=== PATIENT | male | born 1960 | race African-American/Black ===

== ENCOUNTER 2017-07-01 22:24 | Emergency (ER) | payer OTHER ==
[~2017-07-01] VITALS: Ht 175.3 cm; Wt 113.4 kg
[~2017-07-01 22:24] MED LIST: ALBU1.25 NEB; ATOR10TA PO; Aspirin PO; CARV12.5 PO; FLUT12AE5 IH; FURO-144 PO; GUAI10SY3 PO; LISI20TA61 PO; Menthol/Cetylpyrd Cl PO; Nitroglycerin SL
--- NOTE | 2017-07-01 22:30 | NUR ---
57 yo male bb ra from home. 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 pt assisted to er bed, skin warm and rdy, rr even and unlabored. patient denies SOB/ N/V/ radiation of pain. pt gowned,placed on pvc monitor. awaiting orders from provider, will continue to monitor
--- NOTE | 2017-07-01 23:02 | NUR ---
blood sample obtained and sent to lab
[2017-07-01 23:10] LABS: BASOPHILS # (AUTO) 0.1 /CMM (0.0-0.2); BASOPHILS % (AUTO) 0.9 % (0.0-2.0); EOSINOPHILS # (AUTO) 0.3 /CMM (0.0-0.7); EOSINOPHILS % (AUTO) 4.3 % (0.0-6.0); HEMATOCRIT 38 % (39-51); HEMOGLOBIN 12.6 g/dL (13.5-17.5); LYMPHOCYTES # (AUTO) 1.9 /CMM (0.8-4.8); LYMPHOCYTES % (AUTO) 28.5 % (20.0-44.0); MEAN CORPUSCULAR HEMOGLOBIN 24 PG (26.0-33.0); MEAN CORPUSCULAR HGB CONC 33 g/dl (31.0-36.0); MEAN CORPUSCULAR VOLUME 74 fL (80-96); MONOCYTES # (AUTO) 0.4 /CMM (0.1-1.30); MONOCYTES % (AUTO) 6.5 % (2.0-12.0); NEUTROPHILS # (AUTO) 4.1 /CMM (1.8-8.9); NEUTROPHILS % (AUTO) 59.8 % (43.0-81.0); PLATELET COUNT (AUTO) 198 /CMM (150-450); RDW COEFFICIENT OF VARIATION 21.2 (11.5-15.0); RED BLOOD CELL COUNT(AUTO) 5.16 MIL/uL (4.5-6.0); WHITE BLOOD COUNT (AUTO) 6.8 K/uL (4.3-11.0)
[2017-07-01 23:24] LABS: CALCIUM, SERUM 8.9 mg/dL (8.5-10.1); CREATININE 1.2 mg/dL (0.6-1.3)
[2017-07-01 23:25] LABS: INR 1.02 (0.87-1.13); PROTHROMBIN TIME 10.6 SECS (9.5-12.7)
[2017-07-01 23:29] LABS: TROPONIN I 0.197 ng/mL (0.00-0.056)
[2017-07-01 23:33] LABS: ALBUMIN 3.8 g/dL (3.4-5.0); BILIRUBIN,DIRECT 0.1 mg/dL (0.0-0.2); BILIRUBIN,TOTAL 0.4 mg/dL (0.2-1.0)
[2017-07-01] MEDS ORDERED: ENOXAPARIN SODIUM 40 MG/0.4 ML DISP.SYRIN SQ ONE (23:55)
[2017-07-01] MEDS ORDERED: FUROSEMIDE 40 MG/4 ML VIAL ONE (23:55)
[2017-07-01] MEDS ORDERED: ENOXAPARIN SODIUM 80 MG/0.8 ML DISP.SYRIN SQ ONE (23:55)
[2017-07-01] MEDS ORDERED: NITROGLYCERIN PACKET 1 GM PACKET ONE (23:55)
[2017-07-01] MEDS ORDERED: ASPIRIN 81 MG TAB.CHEW ONE (23:56)
[2017-07-02] MEDS ORDERED: ASPIRIN 81 MG TAB.CHEW PO ONE
[2017-07-02] MEDS ORDERED: NITROGLYCERIN PACKET 1 GM PACKET TOP ONE
[2017-07-02] MEDS ORDERED: FUROSEMIDE 40 MG/4 ML VIAL IV ONE
--- NOTE | 2017-07-02 00:17 | NUR ---
medicated pt as ordered
--- NOTE | 2017-07-02 02:46 | NUR ---
patient resting in er bed, nad noted. pt is on cardiac rehabilitation specialist
--- NOTE | 2017-07-02 03:35 | NUR ---
Rufus stock in EDM - 07/02/17 at 0345 by [address] [facility] ROOM 512 ACCEPTING MD IDANIA VELASQUEZ, NUMBER FOR REPORT IS [phone] ETA FOR AMBULANCE IS [phone]
--- NOTE | 2017-07-02 03:46 | NUR ---
ABRAN FROM [facility] CALLED, PT ACCEPTED TO [facility] ROOM 512 ACCEPTING MD IS RON, NUMBER FOR REPORT IS [phone] ETA FOR AMBULANCE IS 0700
--- NOTE | 2017-07-02 03:46 | NUR ---
Rufus stock in EDM - 07/02/17 at [address] [facility] to give report. RAJESH Saldana took report, advised nurse that ETA to our facility was 7 am. will continue to monitor patient
--- NOTE | 2017-07-02 03:57 | NUR ---
Called [facility] to give report. RAJESH Saldana took report, advised nurse that ETA to our facility was 7 am. will continue to monitor patient
[2017-07-02 06:17] VITALS: BP 127/86
--- NOTE | 2017-07-02 06:18 | NUR ---
patient is asleep in er bed, nad noted. pt is breathing effortlessly, skin warm and dry. 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
--- NOTE | 2017-07-02 07:14 | NUR ---
report given to Charly MENA for vishal
--- NOTE | 2017-07-02 07:15 | NUR ---
RECEIVED REPORT. PATIENT RESTING IN BED COMFORTABLY, NO COMPLICATIONS NOTED. AWAITING TRANSFER.
--- NOTE | 2017-07-02 08:10 | NUR ---
REPORT GIVEN TO EMS. PATIENT TRANSFERRED TO [facility] VIA ACLS PROTOCOL.
== END 2017-07-02 08:08 | disposition short-term general hospital (02) ==
LOC: ER 22:31
DX: I21.4 Non-ST elevation (NSTEMI) myocardial infarction (principal); I11.0 Hypertensive heart disease with heart failure; I50.9 Heart failure, unspecified; D64.9 Anemia, unspecified; E78.5 Hyperlipidemia, unspecified; I42.9 Cardiomyopathy, unspecified; J45.909 Unspecified asthma, uncomplicated; Z79.82 Long term (current) use of aspirin; Z86.73 Personal history of transient ischemic attack (TIA), and cerebral infarction without residual deficits; Z95.0 Presence of cardiac pacemaker
CPT/HCPCS: 36415; 71010; 80048; 80076; 80305; 83880; 84484; 85025; 85730; 87081; 93005; 96372; 96374; 99291; A4606; G0480; J1650 ×3; J1940; Z7610

== ENCOUNTER 2017-11-26 07:00 | Emergency (ER) | payer OTHER ==
[~2017-11-26] VITALS: Ht 177.8 cm; Wt 117.9 kg
--- NOTE | 2017-11-26 07:00 | NUR ---
PT [address], PT C/O SOB X 20 MINUTES CADDIE. NAD NOTED. PT AAO X4, AMB WITH STEADY GAIT. RR EVEN AND UNLABORED AT THIS TIME. PT PLACED ON MONITOR. DR PENA AT BEDSIDE FOR EVAL.
[2017-11-26] MEDS ORDERED: ASPIRIN 81 MG TAB.CHEW ONE (07:14)
[2017-11-26] MEDS ORDERED: FUROSEMIDE 40 MG/4 ML VIAL ONE (07:14)
[2017-11-26] MEDS ORDERED: FUROSEMIDE 40 MG/4 ML VIAL IV ONE (07:30)
[2017-11-26] MEDS ORDERED: ASPIRIN 81 MG TAB.CHEW PO ONE (07:30)
[2017-11-26 07:34] LABS: BASOPHILS % (AUTO) 0.4 % (0.0-2.0); EOSINOPHILS # (AUTO) 0.3 /CMM (0.0-0.7); EOSINOPHILS % (AUTO) 5.1 % (0.0-6.0); HEMATOCRIT 38 % (39-51); HEMOGLOBIN 12.4 g/dL (13.5-17.5); LYMPHOCYTES # (AUTO) 1.9 /CMM (0.8-4.8); LYMPHOCYTES % (AUTO) 28.9 % (20.0-44.0); MEAN CORPUSCULAR HEMOGLOBIN 25 PG (26.0-33.0); MEAN CORPUSCULAR HGB CONC 33 g/dl (31.0-36.0); MEAN CORPUSCULAR VOLUME 75 fL (80-96); MONOCYTES # (AUTO) 0.7 /CMM (0.1-1.30); MONOCYTES % (AUTO) 11.3 % (2.0-12.0); NEUTROPHILS # (AUTO) 3.5 /CMM (1.8-8.9); NEUTROPHILS % (AUTO) 54.3 % (43.0-81.0); PLATELET COUNT (AUTO) 199 /CMM (150-450); RDW COEFFICIENT OF VARIATION 16.7 (11.5-15.0); RED BLOOD CELL COUNT(AUTO) 5.06 MIL/uL (4.5-6.0); WHITE BLOOD COUNT (AUTO) 6.4 K/uL (4.3-11.0)
[2017-11-26 07:45] LABS: CALCIUM, SERUM 8.6 mg/dL (8.5-10.1); CREATININE 1.1 mg/dL (0.6-1.3); POTASSIUM 3.4 mmol/L (3.5-5.1)
[2017-11-26 07:50] LABS: INR 1.03 (0.87-1.13)
[2017-11-26 07:52] LABS: TROPONIN I 0.02 ng/mL (0.00-0.056)
[2017-11-26 07:58] LABS: ALBUMIN 3.6 g/dL (3.4-5.0); BILIRUBIN,DIRECT 0.1 mg/dL (0.0-0.2); BILIRUBIN,TOTAL 0.5 mg/dL (0.2-1.0); TOTAL PROTEIN, SERUM 7.9 g/dL (6.4-8.2)
--- NOTE | 2017-11-26 08:16 | NUR ---
PAGED NURSING SUP FOR TELE BED
--- NOTE | 2017-11-26 08:54 | NUR ---
ONDINA CALLED HE IS ON HIS WAY TO ER
[2017-11-26 09:22] VITALS: BP 147/67
== END 2017-11-26 09:23 | disposition home or self-care (01) ==
LOC: ER 07:02
DX: I11.0 Hypertensive heart disease with heart failure (principal); I50.9 Heart failure, unspecified; J45.909 Unspecified asthma, uncomplicated; R06.02 Shortness of breath; I25.2 Old myocardial infarction; Z79.82 Long term (current) use of aspirin; Z86.73 Personal history of transient ischemic attack (TIA), and cerebral infarction without residual deficits; Z60.2 Problems related to living alone
CPT/HCPCS: 36415; 71045; 80048; 80076; 83880; 84484; 85025; 85730; 93005; 96374; 99285; A4606; J1940; Z7610

== ENCOUNTER 2018-02-23 16:47 | Emergency (ER) | payer OTHER ==
[~2018-02-23] VITALS: Ht 177.8 cm; Wt 135.6 kg
--- NOTE | 2018-02-23 16:47 | NUR ---
BIBRA C/O NON RADIATING MIDSTERNAL CHEST PAIN, 1 NITRO AND 162 ASA. NAD NOTED. PT AAO X3, RR EVEN AND UNLABORED. VSS. PENDING MD CAN.
[2018-02-23] MEDS ORDERED: FUROSEMIDE 40 MG/4 ML VIAL IV ONE ×2 (17:00→22:30)
[2018-02-23] MEDS ORDERED: FUROSEMIDE 40 MG/4 ML VIAL ONE ×2 (17:11→22:44)
[2018-02-23 17:21] LABS: BASOPHILS % (AUTO) 0.5 % (0.0-2.0); HEMATOCRIT 38 % (39-51); HEMOGLOBIN 12.1 g/dL (13.5-17.5); LYMPHOCYTES # (AUTO) 2.4 /CMM (0.8-4.8); LYMPHOCYTES % (AUTO) 31.4 % (20.0-44.0); MEAN CORPUSCULAR HGB CONC 32 g/dl (31.0-36.0); MEAN CORPUSCULAR VOLUME 76 fL (80-96); MONOCYTES # (AUTO) 0.6 /CMM (0.1-1.30); MONOCYTES % (AUTO) 8.3 % (2.0-12.0); NEUTROPHILS # (AUTO) 4.6 /CMM (1.8-8.9); NEUTROPHILS % (AUTO) 58.8 % (43.0-81.0); PLATELET COUNT (AUTO) 160 /CMM (150-450); RDW COEFFICIENT OF VARIATION 15.4 (11.5-15.0); RED BLOOD CELL COUNT(AUTO) 4.98 MIL/uL (4.5-6.0); WHITE BLOOD COUNT (AUTO) 7.7 K/uL (4.3-11.0)
[2018-02-23 17:33] LABS: CALCIUM, SERUM 8.7 mg/dL (8.5-10.1); CREATININE 1.4 mg/dL (0.6-1.3); POTASSIUM 3.4 mmol/L (3.5-5.1)
[2018-02-23 17:37] LABS: INR 1.09 (0.85-1.15)
[2018-02-23 17:39] LABS: TROPONIN I 0.112 ng/mL (0.00-0.056)
[2018-02-23 17:47] LABS: ALBUMIN 3.4 g/dL (3.4-5.0); BILIRUBIN,DIRECT 0.2 mg/dL (0.0-0.2); BILIRUBIN,TOTAL 0.7 mg/dL (0.2-1.0); TOTAL PROTEIN, SERUM 7.6 g/dL (6.4-8.2)
--- NOTE | 2018-02-23 17:51 | NUR ---
PT TO CT
[2018-02-23] MEDS ORDERED: FURO40TA5 PO (17:53)
[2018-02-23] MEDS ORDERED: ATOR40TA PO (17:53)
[2018-02-23] MEDS ORDERED: LEVE500T9 PO (17:53)
--- NOTE | 2018-02-23 18:26 | NUR ---
WAITING FOR BED TELE
--- NOTE | 2018-02-23 18:48 | NUR ---
GOT [facility] BED 323-2
--- NOTE | 2018-02-23 19:04 | NUR ---
RECEIVED REPORT FROM RAJESH MAYA FOR BRENDA.
--- NOTE | 2018-02-23 19:24 | NUR ---
PER [facility] WILL PAGE DR. MOE CANELA
--- NOTE | 2018-02-23 19:33 | NUR ---
DR. ARMSTRONG SPEAKING TO DR. MOE CANELA REGARDING ADMISSION
--- NOTE | 2018-02-23 20:23 | NUR ---
DR. NJ SPEAKING TO DR. ARMSTRONG REGARDING ADMISSION
--- NOTE | 2018-02-23 21:20 | NUR ---
SPOKE TO MANNY OSULLIVAN FROM [facility], PT IS CAPIATED TO [facility]. PT AGREED TO TRANSFER TO [facility]. DR. ARMSTRONG MADE AWARE. CLINICALS AND FACESHEET SENT TO [facility] [phone] MANNY OSULLIVAN CALL BACK [phone]
--- NOTE | 2018-02-23 21:59 | NUR ---
ETHAN LUTHER SPEAKING TO DR. ARMSTRONG REGARDING POC. Addendum: 02/23/18 [address] VERDUZCO
--- NOTE | 2018-02-23 22:12 | NUR ---
Patient is resting comfortably in bed with eyes closed. Easily aroused. VSS
--- NOTE | 2018-02-23 22:58 | NUR ---
PER MANNY OSULLIVAN WAITING FOR BED FROM . WILL CALL BACK WITH BED INFO.
--- NOTE | 2018-02-23 23:48 | NUR ---
PER ETHAN BRYANT [facility] [phone] WILL FOLLOW UP WITH BED INFO.
[2018-02-24 00:17] VITALS: BP 152/66
--- NOTE | 2018-02-24 00:17 | NUR ---
Patient is resting comfortably in bed with eyes closed. Easily aroused. VSS
--- NOTE | 2018-02-24 00:18 | NUR ---
SPOKE TO ETHAN CABAN ADMITTING HOSP: [facility] ROOM 63 REPORT TO [phone]. ADMITTING MD: DR. LUBA DONOVAN ETA 60MINS.
--- NOTE | 2018-02-24 00:34 | NUR ---
REPORT GIVEN TO RAJESH CHENG FOR BRENDA.
--- NOTE | 2018-02-24 01:14 | NUR ---
REPORT GIVEN TO [facility] 231 EMT FOR BRENDA. PT IV INTACT AND PATENT. NO S/S INFECTION OF INFILTRATION. PT WITH ALL PERSONAL BELONGINGS. PT AWARE OF TRANSFER. PT PLACED ON GURNEY TO BE TRANSPORTED TO [facility]. PER ZION TOOK OVER CARE.
== END 2018-02-24 02:06 | disposition short-term general hospital (02) ==
LOC: ER 16:49
DX: I21.4 Non-ST elevation (NSTEMI) myocardial infarction (principal); I11.0 Hypertensive heart disease with heart failure; I50.9 Heart failure, unspecified; I25.2 Old myocardial infarction; J45.909 Unspecified asthma, uncomplicated; Z86.73 Personal history of transient ischemic attack (TIA), and cerebral infarction without residual deficits; Z79.82 Long term (current) use of aspirin; Z60.2 Problems related to living alone
CPT/HCPCS: 36415; 71045; 80048; 80076; 83880; 84484; 85025; 85730; 93005; 96374; 96376; 99285; A4606; J1940 ×2; Z7610

== ENCOUNTER 2018-02-28 17:11 | Inpatient (IN) | payer OTHER ==
[~2018-02-28] VITALS: Ht 177.8 cm; Wt 132.4 kg
[~2018-02-28 17:11] MED LIST changes: -ALBU1.25 NEB; -ATOR10TA PO; +ATOR40TA PO; -Aspirin PO; -CARV12.5 PO; -FLUT12AE5 IH; -FURO-144 PO; +FURO40TA5 PO; -GUAI10SY3 PO; +LEVE500T9 PO; -LISI20TA61 PO; -Menthol/Cetylpyrd Cl PO; -Nitroglycerin SL
[2018-02-28] MEDS ORDERED: IV NS 0.9% 1,000 ML BAG IV ONE (17:30)
[2018-02-28 17:45] LABS: BASOPHILS # (AUTO) 0.2 /CMM (0.0-0.2); BASOPHILS % (AUTO) 2.5 % (0.0-2.0); EOSINOPHILS % (AUTO) 1.7 % (0.0-6.0); HEMATOCRIT 39 % (39-51); HEMOGLOBIN 12.7 g/dL (13.5-17.5); LYMPHOCYTES # (AUTO) 1.6 /CMM (0.8-4.8); LYMPHOCYTES % (AUTO) 21.6 % (20.0-44.0); MEAN CORPUSCULAR HGB CONC 33 g/dl (31.0-36.0); MEAN CORPUSCULAR VOLUME 75 fL (80-96); MONOCYTES # (AUTO) 0.7 /CMM (0.1-1.30); MONOCYTES % (AUTO) 9.5 % (2.0-12.0); NEUTROPHILS # (AUTO) 4.7 /CMM (1.8-8.9); NEUTROPHILS % (AUTO) 64.7 % (43.0-81.0); PLATELET COUNT (AUTO) 180 /CMM (150-450); RDW COEFFICIENT OF VARIATION 15.1 (11.5-15.0); RED BLOOD CELL COUNT(AUTO) 5.15 MIL/uL (4.5-6.0); WHITE BLOOD COUNT (AUTO) 7.3 K/uL (4.3-11.0)
[2018-02-28 17:59] LABS: INR 1.15 (0.85-1.15)
--- NOTE | 2018-02-28 18:00 | NUR ---
[id number] FROM THE STREET, OUTSIDE A SUPERResiModelET C/O GENERALIZED WEAKNESS. SEEN BY FOR EVAL. SAFETY AND COMFORT MEASURES PROVIDED. WILL MONITOR.
[2018-02-28 18:07] LABS: ALBUMIN 3.5 g/dL (3.4-5.0); BILIRUBIN,DIRECT 0.2 mg/dL (0.0-0.2); CALCIUM, SERUM 9.3 mg/dL (8.5-10.1); CREATININE 1.7 mg/dL (0.6-1.3); POTASSIUM 3.8 mmol/L (3.5-5.1); TROPONIN I 0.062 ng/mL (0.00-0.056)
--- NOTE | 2018-02-28 18:20 | NUR ---
IV ACCESS STARTED. BLOOD DRAWN FOR LABS. MEDICATED ORDERED.
[2018-02-28] MEDS ORDERED: ASPIRIN 325 MG TABLET PO ONE (19:00)
[2018-02-28] MEDS ORDERED: NITROGLYCERIN PACKET 1 GM PACKET TD ONE (19:00)
[2018-02-28] MEDS ORDERED: NITROGLYCERIN PACKET 1 GM PACKET ONE (19:13)
[2018-02-28] MEDS ORDERED: ASPIRIN 325 MG TABLET ONE (19:13)
--- NOTE | 2018-02-28 19:39 | NUR ---
CALLED NURSING REAL ESTATE PROFESSIONAL AND REQUESTED A TELE BED FOR THIS PT.
--- NOTE | 2018-02-28 19:58 | NUR ---
PT ASSIGNED TO BED 322-2
--- NOTE | 2018-02-28 20:05 | NUR ---
REPORT GIVEN TO RAJESH MARTINEZ FOR BRENDA
--- NOTE | 2018-02-28 20:58 | NUR ---
pt sitting up at edge of bed using urinal w/ resp even & unlabored, nad noted. Awaiting transfer to [facility] 322-1.
--- NOTE | 2018-02-28 21:11 | NUR ---
[place] juice provided. pt sitting up in bed drinking w/ no aspiration of flds noted.
--- NOTE | 2018-02-28 21:14 | NUR ---
PT TRANSFERRED VIA GURNEY FOLLOWING ALS PROTOCOL TO TELE 322-1.
--- NOTE | 2018-02-28 21:20 | NUR ---
RN NOTES PATIENT BROUGHT INTO THE UNIT VIA GURNEY ACCOMPANIED BY 2 ER STAFF AND WAS ABLE TO AMBULATE SAFELY FROM GURNEY TO BED. PT IS ALERT AND ORIENTED X 3, ABLE TO MAKE NEEDS KNOWN, NO SOB NOTED, BREATHING EVEN AND UNLABORED AND DENIES PAIN/NAUSEA/VOMITING AT THIS TIME. ORIENTED PATIENT TO UNIT, ROOM, ROOM MATE, CALL LIGHT, USE OF CALL LIGHT AND ADMISSION PROCESS AND PT VERBALIZED UNDERSTANDING. BODY ASSESSMENT DONE. PATIENT WILL BE UNDER TELEMETRY MONITORING, SR @ 60s-80s WITH PVCs and BBB. ALL PATIENT'S NEEDS ATTENDED TO, PATIENT IS AWARE OF SAFETY NEEDS, PLACED BED IN LOW POSITION AND LOCKED IN PLACE. CALL LIGHT WITHIN EASY REACH. WILL CONTINUE TO MONITOR. AWAITING ADMISSION ORDERS.
[2018-02-28 22:00] VITALS: BP 121/65
--- NOTE | 2018-02-28 22:00 | NUR ---
RN NOTES PAGED MD FOR ADMISSION ORDERS, AWAITING CALL BACK.
--- NOTE | 2018-02-28 22:24 | NUR ---
RN NOTES RECEIVED CALL BACK FROM , RECEIVED NEW ORDER THAT PT WILL BE NPO POST MIDNGHT, AND IT'S OK TO GIVE PT ORANGE JUICE WITH ICE. ALL ORDERS NOTED AND CARRIED OUT, AWAITING FOR ADMISSION ORDERS.
--- NOTE | 2018-02-28 23:29 | NUR ---
RN NOTES RECEIVED CLARIFICATION OF DIET ORDER. ALL ORDERS NOTED AND CARRIED OUT.
[2018-02-28] MEDS ORDERED: MAGNESIUM HYDROXIDE 30 ML UDC PO PRN (23:30)
[2018-02-28] MEDS ORDERED: ONDANSETRON HCL/PF 4 MG/2 ML VIAL IVP PRN (23:30)
[2018-02-28] MEDS ORDERED: NITROGLYCERIN 0.4 MG/TAB BOTTLE SL PRN (23:30)
[2018-02-28] MEDS ORDERED: LORAZEPAM 1 MG TABLET PO PRN (23:30)
[2018-02-28] MEDS ORDERED: HYDROCODONE/APAP 5/325MG 1 EACH TABLET PO PRN (23:30)
[2018-02-28] MEDS ORDERED: Z GUARD REMEDY 2 OZ OINT TP PRN (23:30)
[2018-02-28] MEDS: ENOXAPARIN SODIUM 40 MG/0.4 ML DISP.SYRIN SQ SCH (23:30)
[2018-02-28] MEDS ORDERED: MAG HYDROX/AL HYDROX/SIMETH 30 ML UDC PO PRN (23:30)
[2018-02-28] MEDS ORDERED: ACETAMINOPHEN 325 MG TABLET PO PRN (23:30)
--- NOTE | 2018-02-28 23:51 | NUR ---
RN NOTES PATIENT REFUSED LOVENOX SHOT. EXPLAINED BENEFITS AND RISKS TO PATIENT X 3 BUT PT CONTINUES TO REFUSE MEDICATION AND SAYS THAT HE JUST WANTS TO SLEEP AND HAS BECOME AGITATED. RESPECTED PT'S REQUEST. WILL CONTINUE TO MONITOR.
[2018-03-01] VITALS: BP 118/71
[2018-03-01] MEDS: ZOLPIDEM TARTRATE 5 MG TABLET PO PRN ×2 (00:19→21:42)
--- NOTE | 2018-03-01 00:19 | NUR ---
RN NOTES PATIENT REQUESTING FOR A SLEEPING PILL, ADMINISTERED AMBIEN ORDERED. WILL CONTINUE TO MONITOR PT.
--- NOTE | 2018-03-01 01:00 | NUR ---
RN NOTES PATIENT COMPLAINING OF CRAMPING OF RIGHT LEG, ELEVATED LEG AND ENCOURAGED NOT TO STAY IN ONE POSITION FOR A LONG TIME. WILL CONTINUE TO MONITOR PT.
--- NOTE | 2018-03-01 01:25 | NUR ---
RN NOTES PATIENT VERBALIZED THAT CRAMPING OF THE RIGHT LEG HAS BEEN RELIEVED BUT NOW HAS CRAMPING ON LEFT LEG. ELEVATED AND MASSAGED LEG. BOTH LEGS NOTED WITH NO REDNESS OR SWELLING. WILL CONTINUE TO MONITOR PT.
--- NOTE | 2018-03-01 02:00 | NUR ---
RN NOTES PATIENT ASLEEP, NO SOB NOTED. WILL CONTINUE TO MONITOR.
--- NOTE | 2018-03-01 02:53 | NUR ---
RN NOTES RECEIVED BNP LEVEL, REPORTED TO DR. CANELA WITH NO NEW ORDER. PATIENT WILL BE SEEN BY THE ENVIRONMENTAL HEALTH SAFETY MANAGER IN THE AM. WILL CONTINUE TO MONITOR PT.
[2018-03-01 04:00] VITALS: BP 114/67
--- NOTE | 2018-03-01 06:48 | NUR ---
RN CLOSING NOTES PATIENT IN BED, ASLEEP BUT EASILY AROUSABLE, PT IS ALERT AND ORIENTED X 3, ABLE TO MAKE NEEDS KNOWN, DENIES PAIN, NO SOB NOTED, BREATHING EVEN AND UNLABORED, ALL PATIENT'S NEEDS ATTENDED TO THROUGHOUT THE SHIFT. PT ON TELE MONITORING: SR WITH PVCs @60s-80s. PT RECEIVING O2 @ 2LPM AND DVT PUMPS IN PLACE. PLACED BED IN LOW POSITION AND LOCKED IN PLACE. CALL LIGHT PLACED WITHIN EASY REACH. WILL ENDORSE TO AM SHIFT NURSE FOR CONTINUITY OF CARE.
[2018-03-01 07:24] LABS: BASOPHILS % (AUTO) 0.3 % (0.0-2.0); EOSINOPHILS % (AUTO) 3.5 % (0.0-6.0); HEMATOCRIT 36 % (39-51); HEMOGLOBIN 11.9 g/dL (13.5-17.5); LYMPHOCYTES # (AUTO) 1.4 /CMM (0.8-4.8); LYMPHOCYTES % (AUTO) 25.2 % (20.0-44.0); MEAN CORPUSCULAR HGB CONC 33 g/dl (31.0-36.0); MEAN CORPUSCULAR VOLUME 77 fL (80-96); MONOCYTES # (AUTO) 0.7 /CMM (0.1-1.30); MONOCYTES % (AUTO) 12.2 % (2.0-12.0); NEUTROPHILS # (AUTO) 3.3 /CMM (1.8-8.9); NEUTROPHILS % (AUTO) 58.8 % (43.0-81.0); PLATELET COUNT (AUTO) 158 /CMM (150-450); RDW COEFFICIENT OF VARIATION 16.4 (11.5-15.0); RED BLOOD CELL COUNT(AUTO) 4.71 MIL/uL (4.5-6.0); WHITE BLOOD COUNT (AUTO) 5.6 K/uL (4.3-11.0)
--- NOTE | 2018-03-01 07:30 | NUR ---
BRANDING MACHINE TENDER OPENING NOTES PATIENT IN BED AWAKE, VERBALLY RESPONSIVE, ABLE TO MAKE NEEDS KNOWN. BREATHING EVEN AND UNLABORED. NO SOB NOTED. NO COMPLAINTS OF PAIN OR DISCOMFORT. NO APPARENT DISTRESS. IV ON LAC #20 INTACT AND PATENT. DVT PUMPS REMOVED. PER PATIENT, DOES NOT WANT AT THIS MOMENT. BED IN LOW LOCKED POSITION. CALL LIGHT WITHIN EASY REACH.
[2018-03-01 08:00] VITALS: BP 128/91
[2018-03-01] MEDS: LEVETIRACETAM (250 MG) 250 MG TABLET PO SCH ×2 (09:03→16:31)
[2018-03-01] MEDS: ASPIRIN 325 MG TABLET PO SCH (09:03)
[2018-03-01] MEDS: CARVEDILOL 6.25 MG TABLET PO SCH ×2 (09:03→21:42)
[2018-03-01] MEDS: ENOXAPARIN SODIUM 40 MG/0.4 ML DISP.SYRIN SQ SCH (09:04)
[2018-03-01] MEDS: PANTOPRAZOLE 40 MG TABLET.DR PO SCH (09:05)
--- NOTE | 2018-03-01 09:41 | NUR ---
WOUND CARE CONSULT: PT NOT SEEN YET DUE TO PT HAVING PROCEDURE AT THIS TIME. WILL SEE PT PT CONDITION PERMITS.
--- NOTE | 2018-03-01 10:10 | NUR ---
INITIAL ECHO SHOWED EF 20%~ W/ SEVERE PULM HYPERTENSION 58mmHg. INFORMED CHARGE NURSE (GRABIEL) AND DR. SUERO.
--- NOTE | 2018-03-01 10:17 | NUR ---
Social service consult requested by pt. himself. Pt. is a 57 year old male who was admitted to [facility] for chest pain. CLAY met with pt. bedside. Pt. is alert and oriented x 4. Pt. was pleasant during the assessment. Pt. states he has been homeless for over a year. Pt. is from his and has two children ages 6 and 10 years. Pt's resides in [place]. Pt. is requesting a board and care facility. Pt. states he can afford $600 per month. CLAY informed pt. she will assist him in finding a board and care. CLAY informed human services case manager Karo Espinoza who will contact Adam from [facility] services at to come assess patient for placement. Pt. denies using drugs and alcohol. Pt. denies smoking cigarettes and marijuana. No other social service needs are requested at this time. SW to arrange for placement.
[2018-03-01 10:22] LABS: CALCIUM, SERUM 8.6 mg/dL (8.5-10.1); CREATININE 1.4 mg/dL (0.6-1.3); POTASSIUM 4.3 mmol/L (3.5-5.1)
[2018-03-01 10:33] LABS: PHOSPHORUS 4.1 mg/dL (2.5-4.9)
--- NOTE | 2018-03-01 15:22 | NUR ---
CLAY was informed by telephonic case manager Karo Espinoza that Adam from [facility] will be coming tomorrow at 7AM to assess the patient. CLAY call pt's RN Linda and informed her to relay the message to the patient.
[2018-03-01 16:00] VITALS: BP 129/61
--- NOTE | 2018-03-01 18:46 | NUR ---
RN MS CLOSING NOTES PATIENT IN BED, ASLEEP BUT EASILY AROUSABLE BY NAME OR LIGHT TOUCH. ABLE TO MAKE NEEDS KNOWN. BREATHING EVEN AND UNLABORED. NO COMPLAINTS OF PAIN OR DISCOMFORT. ON 2L OXYGEN VIA NC - TOLERATING WELL. DVT PUMPS IN PLACE - OCCASIONALLY REMOVING. ALL NEEDS ATTENDED TO. SAFETY MEASURES IN PLACE. BED IN LOW LOCKED POSITION. CALL LIGHT WITHIN EASY REACH. WILL ENDORSE TO ONCOMING RN FOR CONTINUITY OF CARE.
[2018-03-01 20:00] VITALS: BP 111/55
--- NOTE | 2018-03-01 20:39 | NUR ---
MS RN OPENING NOTE RECEIVED PATIENT IN BED, ALERT ORIENTED X4, ON 2L O2 VIA NC TOLERATING WELL. IN NO APPARENT DISTRESS OR DISCOMFORT AT THIS TIME, RESPIRATIONS EVEN AND UNLABORED, DENIES CHEST PAIN AND SOB AT THIS TIME. PATIENT IS AMBULATORY, WITH BATHROOM PRIVILEGES, ENCOURAGED TO CALL FOR ASSISTANCE BEFORE GETTING OUT OF THE BED. ON MED SURGE STATUS, ABLE TO COMMUNICATE NEEDS. LAC 20G IVC, SL, PATENT AND INTACT NO FLUIDS RUNNING AT THIS TIME. KEPT CLEAN AND COMFORTABLE, ALL NEEDS ATTENDED. SAFETY MEASURES IN PLACE, BED IN LOW LOCKED POSITION SIDE RAILS UP X2, CALL LIGHT WITHIN EASY REACH, WILL CONTINUE TO MONITOR.
[2018-03-01] MEDS ORDERED: ATORVASTATIN 40 MG TABLET PO SCH (22:00)
[2018-03-02] VITALS: BP 101/57
[2018-03-02 04:00] VITALS: BP 133/86
--- NOTE | 2018-03-02 06:48 | NUR ---
MS RN CLOSING NOTE PATIENT IN BED, SLEEPING EASILY AROUSED WITH VERBAL STIMULI, ON 2L O2 VIA NC TOLERATING WELL. IN NO APPARENT DISTRESS OR DISCOMFORT AT THIS TIME, RESPIRATIONS EVEN AND UNLABORED, DENIES CHEST PAIN AND SOB AT THIS TIME. PATIENT IS AMBULATORY, WITH BATHROOM PRIVILEGES, ENCOURAGED TO CALL FOR ASSISTANCE BEFORE GETTING OUT OF THE BED. ON MED SURGE STATUS. ABLE TO COMMUNICATE NEEDS. LAC 20G IVC, SL, PATENT AND INTACT NO FLUIDS RUNNING AT THIS TIME. KEPT CLEAN AND COMFORTABLE, ALL NEEDS ATTENDED. SAFETY MEASURES IN PLACE, BED IN LOW LOCKED POSITION SIDE RAILS UP X2, CALL LIGHT WITHIN EASY REACH, WILL ENDORSE TO AM NURSE FOR BRENDA.
--- NOTE | 2018-03-02 07:30 | NUR ---
RN MS OPENING NOTES PATIENT IN BED ASLEEP, EASILY AROUSABLE WITH NAME OR LIGHT TOUCH. BREATHING EVEN AND UNLABORED. NO SOB NOTED. NO COMPLAINTS OF PAIN OR DISCOMFORT. NO APPARENT DISTRESS. IV ON LAC #20 INTACT AND PATENT. DVT PUMPS PLACED. BED IN LOW LOCKED POSITION. CALL LIGHT WITHIN EASY REACH.
[2018-03-02 08:00] VITALS: BP 100/53
--- NOTE | 2018-03-02 08:56 | NUR ---
WOUND CARE CONSULT: PT PRESENTS WITH RASH TO ABDOMINAL FOLDS, PRESENT ON ADMISSION. RECOMMENDATIONS MADE FOR CARE OF RASH. DISCUSSED WITH NURSING STAFF. PT IS AMBULATORY AND CONTINENT AT THIS TIME. WILL SEE PRN.
[2018-03-02 09:00] VITALS: BP 100/53
[2018-03-02] MEDS ORDERED: SPIRONOLACTONE 25 MG TABLET PO SCH (09:00)
[2018-03-02] MEDS ORDERED: LOSARTAN POTASSIUM 50 MG TABLET PO SCH (09:00)
[2018-03-02] MEDS ORDERED: CLOTRIMAZOLE 1% 15 GM TUBE TP SCH (09:00)
[2018-03-02] MEDS ORDERED: FUROSEMIDE 20 MG TABLET PO SCH (09:00)
[2018-03-02] MEDS: CARVEDILOL 6.25 MG TABLET PO SCH (09:00)
[2018-03-02] MEDS: LEVETIRACETAM (250 MG) 250 MG TABLET PO SCH (09:17)
[2018-03-02] MEDS: ASPIRIN 325 MG TABLET PO SCH (09:17)
[2018-03-02] MEDS: PANTOPRAZOLE 40 MG TABLET.DR PO SCH (09:18)
[2018-03-02] MEDS: ENOXAPARIN SODIUM 40 MG/0.4 ML DISP.SYRIN SQ SCH (09:19)
--- NOTE | 2018-03-02 19:18 | NUR ---
MANAGER CORE NOTES PATIENT WAS SEEN TODAY BY MD WITH ORDERS FOR DISCHARGE BACK TO [facility]. DISCUSSED PLAN OF CARE WITH PATIENT WELL MEDICATION LIST - WHEN AND HOW TO TAKE THEM. PATIENT VERBALIZED UNDERSTANDING. PATIENT REFUSED COPIES OF HIS MEDICAL RECORDS. STATED THAT HE DOESN'T NEED IT. BELONGINGS ACCOUNTED FOR. COPY OF RESOURCES GIVEN BY SHYLA ACTIVITY SPECIALIST. ASSISTED PATIENT TO HOSPITAL LOBBY VIA WHEELCHAIR. BUS TOKEN GIVEN TO PATIENT.
--- NOTE | 2018-03-02 19:18 | NUR ---
GUN EXAMINER NOTES PATIENT LEFT IN STABLE CONDITION. BREATHING EVEN AND UNLABORED. NO COMPLAINTS OF PAIN OR DISCOMFORT.
== END 2018-03-02 14:00 | disposition home or self-care (01) | DRG 203 ==
LOC: ER 17:13 → TELE 21:06 → MED 03-01 09:36
PROVIDERS: ADMIT Hospitalist; ATTEND Hospitalist
DX: M94.0 Chondrocostal junction syndrome [Tietze] (principal); N17.0 Acute kidney failure with tubular necrosis; I50.23 Acute on chronic systolic (congestive) heart failure; I47.2 Ventricular tachycardia; Z68.41 Body mass index [BMI] 40.0-44.9, adult; I42.9 Cardiomyopathy, unspecified; I27.20 Pulmonary hypertension, unspecified; E66.01 Morbid (severe) obesity due to excess calories; I11.0 Hypertensive heart disease with heart failure; I25.10 Atherosclerotic heart disease of native coronary artery without angina pectoris; K21.9 Gastro-esophageal reflux disease without esophagitis; Z86.73 Personal history of transient ischemic attack (TIA), and cerebral infarction without residual deficits; Z95.810 Presence of automatic (implantable) cardiac defibrillator; G47.33 Obstructive sleep apnea (adult) (pediatric); G40.909 Epilepsy, unspecified, not intractable, without status epilepticus
CPT/HCPCS: 36415; 71045-TC; 80048-TC; 80061-TC; 80076-TC; 83735-TC; 83880; 84100-TC; 84484-TC; 85025-TC; 85730-TC; 87081-TC; 93307-TC; A4606; J1650; J7030; Z7610

== ENCOUNTER 2018-03-10 20:50 | Emergency (ER) | payer OTHER ==
[~2018-03-10] VITALS: Ht 175.3 cm; Wt 117.9 kg
[2018-03-10 20:56] VITALS: BP 130/80
== END 2018-03-10 23:46 | disposition home or self-care (01) ==
LOC: ER 20:52
DX: Z13.89 Encounter for screening for other disorder (principal); I10 Essential (primary) hypertension; J45.909 Unspecified asthma, uncomplicated; Z86.73 Personal history of transient ischemic attack (TIA), and cerebral infarction without residual deficits
CPT/HCPCS: 93005; 99283; A4606; Z7610